=== PATIENT | female | born 2000 | race Caucasian/White ===

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

== ENCOUNTER 2020-08-05 14:41 | Outpatient (CLI) | payer MEDICAID ==
[2020-08-05 15:25] LABS: APPEARANCE,URINE SLIGHTLY-CLOUDY; BILIRUBIN,URINE NEGATIVE (NEGATIVE); COLOR,URINE YELLOW; GLUCOSE, URINE NEGATIVE (NEGATIVE); KETONES,URINE NEGATIVE (NEGATIVE); LEUKOCYTE ESTERASE,URINE LARGE (NEGATIVE); NITRITE,URINE NEGATIVE (NEGATIVE); PROTEIN,URINE 30 mg/dL (NEGATIVE); URINE SPECIFIC GRAVITY 1.015; UROBILINOGEN,URINE NEGATIVE mg/dL (<2.0)
[2020-08-05 15:42] LABS: URINE AMPHETAMINES SCREEN NEGATIVE; URINE BARBITURATES SCREEN NEGATIVE; URINE BENZODIAZEPINES SCREEN NEGATIVE; URINE COCAINE SCREEN NEGATIVE; URINE MARIJUANA (THC) SCREEN NEGATIVE; URINE METHADONE SCREEN NEGATIVE; URINE PHENCYCLIDINE SCREEN NEGATIVE
--- NOTE | 2020-08-05 15:55 | Non Stress Test Report ---
Non Stress Test Datetime Report Generated by CPN: 08/05/2020 15:55 DEMOGRAPHIC EGA NST: 36.1 INDICATION Indication for Study (NST) Other: IUP at 36.1; Not in labor VITAL SIGNS Temperature - NST: 97.7 Pulse - NST: 97 RESP - NST: 18 NBPSYS NST: 129 NBPDIA NST: 81 MONITORING Monitor Explained: Monitor Explained; Test Explained; Patient Verbalized Understanding Time on Monitor: 08/05/2020 14:55 Time off Monitor: 08/05/2020 15:34 NST Duration: 39 NST INTERVENTIONS NST Interventions: PO Hydration Physician Notified NST: Dr. Irizarry BABY A: [id number] Movement : Present Contraction Frequency : 3-7 FHR Baseline : 135 Accelerations : 15X15 Decelerations : None Variability : Moderate 6-25bpm NST Review: Meets Criteria for Reactive NST NST Review and Verified By : Gisela Mondragon RN NST Results: Reactive NST REPORT Report Trigger: Send Report
== END 2020-08-05 15:45 | disposition home or self-care (01) ==
LOC: LC 14:41
PROVIDERS: ATTEND Obstetrics & Gynecology
DX: O47.03 False labor before 37 completed weeks of gestation, third trimester (principal); Z3A.36 36 weeks gestation of pregnancy
CPT/HCPCS: 59025; 80307; 81001; 84112

== ENCOUNTER 2020-08-14 21:33 | Outpatient (CLI) | payer MEDICAID ==
[2020-08-14 22:17] LABS: APPEARANCE,URINE CLEAR; BILIRUBIN,URINE NEGATIVE (NEGATIVE); COLOR,URINE YELLOW; GLUCOSE, URINE 50 mg/dL (NEGATIVE); KETONES,URINE NEGATIVE (NEGATIVE); LEUKOCYTE ESTERASE,URINE TRACE (NEGATIVE); NITRITE,URINE NEGATIVE (NEGATIVE); PROTEIN,URINE 30 mg/dL (NEGATIVE); URINE SPECIFIC GRAVITY 1.014; UROBILINOGEN,URINE NEGATIVE mg/dL (<2.0)
[2020-08-14 22:40] LABS: URINE AMPHETAMINES SCREEN NEGATIVE; URINE BARBITURATES SCREEN NEGATIVE; URINE BENZODIAZEPINES SCREEN NEGATIVE; URINE COCAINE SCREEN NEGATIVE; URINE MARIJUANA (THC) SCREEN NEGATIVE; URINE METHADONE SCREEN NEGATIVE; URINE PHENCYCLIDINE SCREEN NEGATIVE
--- NOTE | 2020-08-14 23:00 | Non Stress Test Report ---
Non Stress Test Datetime Report Generated by CPN: 08/14/2020 23:00 DEMOGRAPHIC EGA NST: 37.3 INDICATION Indication for Study (NST) Other: lc VITAL SIGNS Temperature - NST: 98.2 Pulse - NST: 92 RESP - NST: 17 NBPSYS NST: 132 NBPDIA NST: 70 MONITORING Monitor Explained: Monitor Explained; Test Explained; Patient Verbalized Understanding Time on Monitor: 08/14/2020 21:50 Time off Monitor: 08/14/2020 22:46 NST Duration: 56 NST INTERVENTIONS NST Interventions: PO Hydration; Reposition Patient Physician Notified NST: Dr Yun BABY A: [id number] BABY A Movement : Present Contraction Frequency : rare FHR Baseline : 145 Accelerations : 15X15 Decelerations : None Variability : Moderate 6-25bpm NST Review: Meets Criteria for Reactive NST NST Review and Verified By : Arie Rodriguez RN NST Results: Reactive NST REPORT Report Trigger: Send Report
== END 2020-08-14 22:54 | disposition home or self-care (01) ==
LOC: LC 21:33
PROVIDERS: ATTEND Obstetrics & Gynecology
DX: O47.1 False labor at or after 37 completed weeks of gestation (principal); Z3A.37 37 weeks gestation of pregnancy
CPT/HCPCS: 59025; 80307; 81005; 84112

== ENCOUNTER 2020-08-17 11:25 | Outpatient (CLI) | payer MEDICAID ==
[2020-08-17 12:08] LABS: APPEARANCE,URINE CLEAR; BILIRUBIN,URINE NEGATIVE (NEGATIVE); COLOR,URINE YELLOW; GLUCOSE, URINE NEGATIVE (NEGATIVE); KETONES,URINE NEGATIVE (NEGATIVE); LEUKOCYTE ESTERASE,URINE TRACE (NEGATIVE); NITRITE,URINE NEGATIVE (NEGATIVE); PROTEIN,URINE 30 mg/dL (NEGATIVE); URINE SPECIFIC GRAVITY 1.018; UROBILINOGEN,URINE NEGATIVE mg/dL (<2.0)
[2020-08-17 12:31] LABS: URINE AMPHETAMINES SCREEN NEGATIVE; URINE BARBITURATES SCREEN NEGATIVE; URINE BENZODIAZEPINES SCREEN NEGATIVE; URINE COCAINE SCREEN NEGATIVE; URINE MARIJUANA (THC) SCREEN NEGATIVE; URINE METHADONE SCREEN NEGATIVE; URINE PHENCYCLIDINE SCREEN NEGATIVE
--- NOTE | 2020-08-17 14:46 | Non Stress Test Report ---
Non Stress Test Datetime Report Generated by CPN: 08/17/2020 14:46 DEMOGRAPHIC Test Number: 3 EGA NST: 37.6 INDICATION Indication for Study (NST) Other: labor check VITAL SIGNS Temperature - NST: 98.2 Pulse - NST: 92 RESP - NST: 16 NBPSYS NST: 121 NBPDIA NST: 69 MONITORING Monitor Explained: Monitor Explained; Test Explained; Patient Verbalized Understanding Time on Monitor: 08/17/2020 11:48 Time off Monitor: 08/17/2020 14:24 NST Duration: 156 NST INTERVENTIONS Physician Notified NST: Dr Irizarry BABY A: [id number] BABY A Movement : Present Contraction Frequency : 3-6 FHR Baseline : 150 Accelerations : 15X15 Decelerations : None Variability : Moderate 6-25bpm NST Review: Meets Criteria for Reactive NST NST Review and Verified By : Gisela Mondragon RN NST Results: Reactive NST REPORT Report Trigger: Send Report
== END 2020-08-17 14:27 | disposition home or self-care (01) ==
LOC: LC 11:25
PROVIDERS: ATTEND Obstetrics & Gynecology
DX: O26.893 Other specified pregnancy related conditions, third trimester (principal); R10.9 Unspecified abdominal pain; Z3A.37 37 weeks gestation of pregnancy
CPT/HCPCS: 59025; 80307; 81005; 84112

== ENCOUNTER 2020-08-20 00:18 | Outpatient (CLI) | payer MEDICAID ==
[2020-08-20 00:52] LABS: APPEARANCE,URINE CLEAR; BILIRUBIN,URINE NEGATIVE (NEGATIVE); COLOR,URINE YELLOW; GLUCOSE, URINE NEGATIVE (NEGATIVE); KETONES,URINE NEGATIVE (NEGATIVE); LEUKOCYTE ESTERASE,URINE NEGATIVE (NEGATIVE); NITRITE,URINE NEGATIVE (NEGATIVE); PROTEIN,URINE NEGATIVE (NEGATIVE); URINE SPECIFIC GRAVITY 1.013; UROBILINOGEN,URINE NEGATIVE mg/dL (<2.0)
[2020-08-20 01:36] LABS: URINE AMPHETAMINES SCREEN NEGATIVE; URINE BARBITURATES SCREEN NEGATIVE; URINE BENZODIAZEPINES SCREEN NEGATIVE; URINE COCAINE SCREEN NEGATIVE; URINE MARIJUANA (THC) SCREEN NEGATIVE; URINE METHADONE SCREEN NEGATIVE; URINE PHENCYCLIDINE SCREEN NEGATIVE
--- NOTE | 2020-08-20 02:33 | Non Stress Test Report ---
Non Stress Test Datetime Report Generated by CPN: 08/20/2020 02:33 DEMOGRAPHIC Test Number: 4 EGA NST: 38.2 INDICATION Indication for Study (NST) Other: LC URINE RESULTS Urine Protein, NST: Negative Urine Ketones - NST: Negative Urine Glucose - NST: Negative Urine Blood - NST: Negative MONITORING Monitor Explained: Monitor Explained; Test Explained; Patient Verbalized Understanding Time on Monitor: 08/20/2020 00:49 Time off Monitor: 08/20/2020 02:03 NST Duration: 74 NST INTERVENTIONS NST Interventions: PO Hydration Physician Notified NST: Quinones BABY A: [id number] Movement : Present Contraction Frequency : 2-5 FHR Baseline : 135 Accelerations : 15X15 Decelerations : None Variability : Moderate 6-25bpm NST Review: Meets Criteria for Reactive NST NST Review and Verified By : LAUREEN Lilly NST Results: Reactive NST REPORT Report Trigger: Send Report
== END 2020-08-20 02:13 | disposition home or self-care (01) ==
LOC: LC 00:18
PROVIDERS: ATTEND Obstetrics & Gynecology
DX: O47.1 False labor at or after 37 completed weeks of gestation (principal); Z3A.38 38 weeks gestation of pregnancy
CPT/HCPCS: 59025; 81005; 80307; 84112; Q0114

== ENCOUNTER 2020-08-23 06:01 | Inpatient (IN) | payer MEDICAID ==
[2020-08-23] MEDS ORDERED: RINGERS SOLUTION,LACTATED 1,000 ML IV ONE (06:20)
[2020-08-23] MEDS ORDERED: RINGERS SOLUTION,LACTATED 500 ML IV ONE (06:20)
[2020-08-23] MEDS ORDERED: MISOPROSTOL 0.2 MG TABLET ONE ×2 (06:21→07:41)
[2020-08-23] MEDS ORDERED: LIDOCAINE 1% INJ-PF (10 MG/ML) 30 ML SDV ONE (06:21)
[2020-08-23] MEDS ORDERED: OXYTOCIN 10 UNIT/ML VIAL ONE (06:21)
[2020-08-23] MEDS ORDERED: OXYTOCIN/0.9 % SODIUM CHLORIDE 30 UNIT/500 ML RTUINJ ONE (06:21)
[2020-08-23 06:54] LABS: APPEARANCE,URINE SLIGHTLY-CLOUDY; BILIRUBIN,URINE NEGATIVE (NEGATIVE); COLOR,URINE YELLOW; GLUCOSE, URINE NEGATIVE (NEGATIVE); KETONES,URINE NEGATIVE (NEGATIVE); LEUKOCYTE ESTERASE,URINE MODERATE (NEGATIVE); NITRITE,URINE NEGATIVE (NEGATIVE); PROTEIN,URINE 30 mg/dL (NEGATIVE); URINE SPECIFIC GRAVITY 1.014; UROBILINOGEN,URINE NEGATIVE mg/dL (<2.0)
[2020-08-23 07:10] LABS: URINE AMPHETAMINES SCREEN NEGATIVE; URINE BARBITURATES SCREEN NEGATIVE; URINE BENZODIAZEPINES SCREEN NEGATIVE; URINE COCAINE SCREEN NEGATIVE; URINE MARIJUANA (THC) SCREEN NEGATIVE; URINE METHADONE SCREEN NEGATIVE; URINE PHENCYCLIDINE SCREEN NEGATIVE
[2020-08-23 07:13] LABS: ABSOLUTE BASOPHILS # (AUTO) 0.1 10^3/uL (0.0-0.2); ABSOLUTE EOSINOPHILS # (AUTO) 0.3 10^3/uL (0.0-0.6); ABSOLUTE LYMPHOCYTES (AUTO) 2.4 10^3/uL (0.5-4.7); ABSOLUTE MONOCYTES (AUTO) 0.6 10^3/uL (0.1-1.4); BASOPHILS % (AUTO) 0.6 % (0-2); EOSINOPHILS % (AUTO) 3.1 % (0-6); HEMATOCRIT 35.1 % (36.0-47.0); HEMOGLOBIN 12.2 g/dL (12.0-15.5); LYMPHOCYTES % (AUTO) 23.5 % (13-45); MEAN CORPUSCULAR HEMOGLOBIN 34.4 pg (27.0-33.4); MEAN CORPUSCULAR HGB CONC 34.8 g/dL (32.0-36.0); MEAN CORPUSCULAR VOLUME 99 fl (80-97); MONOCYTES % (AUTO) 5.8 % (3-13); PLATELET COUNT 185 10^3/uL (150-450); RED BLOOD COUNT 3.56 10^6/uL (3.72-5.28); RED CELL DISTRIBUTION WIDTH 12.9 % (11.5-14.0); TOTAL CELLS COUNTED % (AUTO) 100 %; WHITE BLOOD COUNT 10.4 10^3/uL (4.0-10.5)
[2020-08-23 07:31] LABS: ALBUMIN 2.6 g/dL (3.5-5.0); ALKALINE PHOSPHATASE 106 U/L (38-126); ANION GAP 7 (5-19); ASPARTATE AMINO TRANSFERASE 18 U/L (14-36); BLOOD UREA NITROGEN 11 mg/dL (7-20); CARBON DIOXIDE 21 mmol/L (22-30); CHLORIDE 104 mmol/L (98-107); GLUCOSE 76 mg/dL (75-110); POTASSIUM 4.3 mmol/L (3.6-5.0)
[2020-08-23] MEDS ORDERED: METHYLERGONOVINE MALEATE INJ/PF 0.2 MG/1 ML AMPULE ONE (07:41)
[2020-08-23 07:42] LABS: BILIRUBIN,TOTAL < 0.1 mg/dL (0.2-1.3)
[2020-08-23 07:47] LABS: FREE T3 3.23 pg/mL (2.77-5.27); FREE T4 (FREE THYROXINE) 0.74 ng/dL (0.78-2.19)
[2020-08-23] MEDS ORDERED: MAGNESIUM HYDROXIDE SUSP 30 ML UDCUP PO PRN (07:50)
[2020-08-23] MEDS ORDERED: VARICELLA VACC/PF (1350 UNIT/0.5 ML) 0.5 ML VIAL SUBCUT PRN (07:50)
[2020-08-23] MEDS ORDERED: DIPH/PERTUSS(ACELL)/TETANUS VAC/PF 0.5 ML SYR (>=10YO) IM PRN (07:50)
[2020-08-23] MEDS ORDERED: BENZOCAINE/MENTHOL AEROSOL SPRAY 56 ML TOP PRN (07:50)
[2020-08-23] MEDS ORDERED: DIBUCAINE 1% OINTMENT 28 GM TP PRN (07:50)
[2020-08-23] MEDS ORDERED: OXYTOCIN/0.9 % SODIUM CHLORIDE 30 UNIT/500 ML RTUINJ IV PRN (07:50)
[2020-08-23] MEDS ORDERED: ACETAMINOPHEN 325 MG TABLET PO PRN (07:50)
[2020-08-23] MEDS ORDERED: ACETAMINOPHEN 650 MG SUPP.RECT PR PRN (07:50)
[2020-08-23] MEDS ORDERED: GLYCERIN/WITCH HAZEL LEAF 1 EACH MED..WIPE TP PRN (07:50)
[2020-08-23] MEDS ORDERED: ZOLPIDEM TARTRATE 5 MG TABLET PO PRN (07:50)
[2020-08-23] MEDS ORDERED: MAG HYDROX/AL HYDROX/SIMETH SUSP 30 ML UDCUP PO PRN (07:50)
[2020-08-23] MEDS ORDERED: FAMOTIDINE 20 MG TABLET PO PRN (07:50)
[2020-08-23] MEDS ORDERED: MEASLES,MUMPS&RUBELLA VACC/PF 0.5 ML VIAL SUBCUT PRN (07:50)
[2020-08-23] MEDS ORDERED: ACETAMINOPHEN WITH CODEINE #3 TABLET PO PRN ×2 (07:50)
[2020-08-23] MEDS ORDERED: PSEUDOEPHEDRINE HCL 30 MG TABLET PO PRN (07:50)
[2020-08-23] MEDS ORDERED: DIPHENHYDRAMINE HCL 25 MG CAPSULE PO PRN (07:50)
[2020-08-23 08:00] LABS: THYROID STIMULATING HORMONE 3.52 uIU/mL (0.47-4.68)
--- NOTE | 2020-08-23 08:00 | Admission Physical ---
Datetime Report Generated by CPN: 08/23/2020 08:00 CURRENT ADMISSION Chief Complaint: Uterine Contractions; Suspected Ruptured Membranes Indication for Induction: Not Applicable Admit Impression : Term, Intrauterine ; Active Labor Admit Plan: Admit to Unit; Initiate Labor Protocol ALLERGIES Medication Allergies: No Medication Allergies: No Known Allergies (08/20/2020) Latex: No Latex Allergies Food Allergies: none Environmental Allergies: none OBSTETRICAL HISTORY EDC: 09/01/2020 00:00 : 2 Para: 1 Term: 0 : 0 SAB: 0 IAB: 0 Ectopic: 0 Livin Cesareans: 0 VBACs: 0 Multiple Births: 0 Gestational Diabetes: No Rh Sensitization: No Incompetent Cervix: No TAMMIE: No Infertility: No ART Treatment: No Uterine Anomaly: No IUGR: No Hx Previous C/S: No Macrosomia: No Hx Loss/Stillborn: No PIH: No Hx : No Placenta Previa/Abruption: No Depression/PP Depression: No PTL/PROM: No Post Hemorrhage: Yes Current Procedures: Ultrasound; NST Obstetrical History Comments: G1: 2017 38.5 wks, 7lbs 15 oz, female- PPH (did not receive blood products) G2: Current SEE RECORDS Alcohol: No Marijuana : No Cocaine: No Other Illicit Drugs: No Cigarettes: Never Smoker. 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 Hx of elevated LFT in , PPH with first , has labial defect from G1 (wants repaired) INFECTIOUS HISTORY Gonorrhea: No Genital Herpes: No Chlamydia: No Tuberculosis: No Syphilis: No Hepatitis: No HIV/AIDS Exposure: No Rash or Viral Illness: No HPV: No PHYSICAL EXAM General: Normal HEENT: Normal Neurologic: Normal Thyroid: Deferred Heart: Normal Lungs: Normal Breast: Deferred Back: Normal Abdomen: Normal Genitourinary Exam: Normal Extremities: Normal DTRs: Normal Pelvic Type: Adequate Vital Signs: Reviewed VAGINAL EXAM Dilatation: 6 Effacement: 90 Station: -1 Contraction Comments: q 3-4 MEMBRANES Membranes: Bulging FETUS A EGA: 38.5 Monitoring: External US FHR- Baseline: 145 Variability: Moderate 6-25bpm Accelerations: 15X15 Decelerations: None FHR Category: Category I Presentation: Vertex Admit Comment: 20yo at 38+5ega presents for possible SROM and contractions. Pelvis proven to 7#15oz. H/o exercised induced asthma. Delivery note from 2018 delivery notes no laceartion but pitocin/cytotec given and c/w pph. She denies having transfusion. She has a defect (hole) in left labia minora - defect is approx 2-3cm. She has a history of thyroid mass and reportedly had a normal biopsy and then mass went away. She also has a history of elevated LFTs in . Will chk thyroid labs and lfts today. She declines epidural but is requesting that the defect is repaired. I reviewed with patient that due to size of defect would need to be repaired on separate occasion to repair properly especially since she does not have any pain medication on board. Recommended labialplasty as an outpatient. Dr. Hinojosa saw defect and agrees with recommendation. GBS negative. + SROM. Anticipate PLANS FOR LABOR AND DELIVERY Labor and Delivery: None Pain Management: Natural Feeding Preference: Breast Benefit of Breast Feed Discussed: Yes Circumcision: N/A INFORMED CONSENT Informed Consent Obtained: Vaginal Delivery; Risks, Benefits and Alternatives Discussed Signature: with User ID: [email or web address]
[2020-08-23] MEDS ORDERED: IBUPROFEN 800 MG TABLET ONE (08:29)
[2020-08-23] MEDS ORDERED: MISOPROSTOL 0.2 MG TABLET PR ONE (08:31)
--- NOTE | 2020-08-23 08:44 | Delivery Summary ---
Del Sum A-C Datetime Report Generated by CPN: 08/23/2020 08:44 DELIVERY PERSONNEL DELIVERY PERSONNEL: [id number] Delivery Doctor:: Kaela Campos MD Labor and Delivery Nurse:: Ro Rowley RN Nursery Nurse:: Dima Schroeder RN MATERNAL INFORMATION Delivery Anesthesia: None Medications After Delivery: Pitocin 30 Units in 500ml NS/D5W; Cytotec 1000mcg Per Rectum/Vagina Estimated Blood Loss (ml): 350 Delivery QBL: 350 Maternal Complications: Precipitous Labor (<3hrs) Provider Comments: VFi delivered in [place] presentation. No nuchal cord. Shoulders and body delivered without difficulty. to matenral abdomen and cord clamping delayed. Cord doubly clamped and cut. uterine atony immediately noted and Pitocin and cytotec 1000mcg MI give. FF at U after cytotec. Mother and baby stable upon provider leaving the room. no perineal lacerations LABOR SUMMARY EDC: 09/01/2020 00:00 Attempted: No Labor Anesthesia: None LABOR INFORMATION Reason for Induction: Not Applicable Onset of Labor: 08/23/2020 04:49 Complete Dilatation: 08/23/2020 07:28 Oxytocin: N/A Group B Beta Strep: negative Antibiotics # of Doses: 0 Name of Antibiotic Given: NA Steroids Given: None Reason Steroids Not Administered: Not Applicable MEMBRANES Membranes Rupture Method: Spontaneous Rupture of Membranes: 08/23/2020 06:00 Length of Rupture (hr): 1.60 Amniotic Fluid Color: Clear Amniotic Fluid Amount: Scant Amniotic Fluid Odor: Normal STAGES OF LABOR Stage 1 hr: 2 Stage 1 min: 39 Stage 2 hr: 0 Stage 2 min: 8 Stage 3 hr: 0 Stage 3 min: 3 Total Time in Labor hr: 2 Total Time in Labor min: 50 VAGINAL DELIVERY Episiotomy: None Laceration #1: None Laceration Extension #1: N/A Laceration Repair: Not Applicable Laceration Repair Note: labial defect from prior delivery noted. Sponge Count Correct: Yes Sharps Count Correct: Yes CSECTION DELIVERY Primary Indication: N/A Secondary Indication: N/A CSection Incidence: N/A Labor: N/A Elective: N/A CSection Incision: N/A BABY A INFORMATION Infant Delivery Date/Time: 08/23/2020 07:36 Method of Delivery: Vaginal Nurse Controlled Delivery: No Born in Route : No : N/A Forceps: N/A Vacuum Extraction: N/A Shoulder Dystocia : No PRESENTATION/POSITION BABY A Presentation: Cephalic Cephalic Presentation: Vertex Vertex Position: Right Occipital Anterior Breech Presentation: N/A PLACENTA INFORMATION BABY A Placenta Delivery Time : 08/23/2020 07:39 Placenta Method of Delivery: Spontaneous Placenta Status: Delivered SCORES BABY A Heart Rate 1 min: >100 bpm Resp Effort 1 min: Good Cry Reflex Irritability 1 min: Cough or Sneeze or Pulls Away Muscle Tone 1 min: Active Motion Color 1 min: Body [place], Extremities Blue Resuscitation Effort 1 min: Tactile Stimulation SCORE 1 MIN: 9 Heart Rate 5 min: >100 bpm Resp Effort 5 min: Good Cry Reflex Irritability 5 min: Cough or Sneeze or Pulls Away Muscle Tone 5 min: Active Motion Color 5 min: Body [place], Extremities Blue Resuscitation Effort 5 min: N/A SCORE 5 MIN: 9 INFORMATION BABY A Gestational Age at Delivery: 38.5 Gestational Status: Early Term- 37- 38.6 Weeks Infant Outcome : Liveborn Infant Condition : Stable Sex: Female IDENTIFICATION BABY A Verification Date/Time: 08/23/2020 08:17 ID Band Number: [id number] Mother's Name Verified: Yes Infant RN Verifying : M. Sales, RN Additional Verifying Personnel: B. Aveillant, RN WEIGHT/LENGTH BABY A Infant Birthweight (gm): 3557 Weight (lb): 7 Weight (oz): 13 Infant Length (in): 19.75 Infant Length (cm): 50.17 CORD INFORMATION BABY A No. Cord Vessels: 3 Nuchal Cord : N/A Nuchal Cord- Other: Compound right hand Cord Blood Taken: Yes-For Storage (Mom's Blood type +) Suction: None BABY B INFORMATION : N/A SIGNATURES Signature: with User ID: John
--- NOTE | 2020-08-23 08:44 | Birth Certificate Data ---
Cert Data Datetime Report Generated by CPN: 08/23/2020 08:44 CERTIFICATE DATA Delivery Provider: Kaela Campos MD (08/05/2020 14:45:Kaela Campos MD ([facility])) 47a. Care: Yes (08/05/2020 14:45:Lida Mondragon RN) 47b. Date of First Visit: 02/08/2020 00:00 (08/05/2020 14:45:Louis Rodriguez RN) 47c. Date of Last Visit: 08/17/2020 00:00 (08/05/2020 14:45:TRINIDAD Ramírez) 47d. Number of Visits: 7 (08/05/2020 14:45:TRINIDAD Ramírez) 48a. Number of Prev Live Births: 1 (08/05/2020 14:45:Louis Rodriguez RN) 48b. Now Livin (08/05/2020 14:45:Donna Villavicencio RN) 48c. Live Births Now : 0 (08/05/2020 14:45:QS system process) 48d. Date of Last Live : 04/07/2018 00:00 (08/05/2020 14:45:Louis Rodriguez RN) 48e. Losses: 0 (08/05/2020 14:45:Louis Rodriguez RN) RISK FACTORS IN THIS 49a. Diabetes: No (08/05/2020 14:45:Louis Rodriguez RN) 49b. Hypertension: No (08/05/2020 14:45:Louis Rodriguez RN) 49c. Previous Births: 0 (08/05/2020 14:45:November LAUREEN Villavicencio) 49d. Stillborns: No (08/05/2020 14:45:Louis Rodriguez RN) 49d. IUGR: No (08/05/2020 14:45:Louis Rodriguez RN) 49e. Infertility Treatment: No (08/05/2020 14:45:Louis Rodriguez RN) 49f. Previous Cesareans: 0 (08/05/2020 14:45:Louis Rodriguez RN) Mother's Height 50b. Height Inches: 63 (08/23/2020 07:21:QS system process) Mother's Weight 51a. Pre- Weight (lbs): 125 (08/05/2020 14:45:Lida Mondragon RN) 51b. Weight at Delivery (lbs): 172 (08/23/2020 07:21:QS system process) 52. Dt Last Normal Menses Began: 11/24/2019 00:00 (08/05/2020 14:45:TRINIDAD Ramírez) Infections Present/Treated 53a. Gonorrhea: No (08/05/2020 14:45:Louis Rodriguez RN) Results this Hospital Visit : Negative (08/05/2020 14:45:Lida Mondragon RN) 53b. Syphilis: No (08/05/2020 14:45:Louis Rodriguez RN) 53c. Chlamydia: No (08/05/2020 14:45:Louis Rodriguez RN) Results this Hospital Visit: Negative (08/05/2020 14:45:Lida Mondragon RN) 53d. Hepatitis B: No (08/05/2020 14:45:Louis Rodriguez RN) Results this Hospital Visit: Negative (08/05/2020 14:45:Lida Mondragon RN) 53e. Hepatitis C: Negative (08/05/2020 14:45:Lida Mondragon RN) 53h. Mother Tested for HBsAG: Yes (08/05/2020 14:45:Lida Mondragon RN) 53i. Date Tested: 02/08/2020 00:00 (08/05/2020 14:45:Lida Mondragon RN) 53j. Test Result: Negative (08/05/2020 14:45:Lida Mondragon RN) Obstetric Procedures 54a, b, c. Obstetric Procedures: Ultrasound; NST (08/05/2020 14:45:Louis Rodriguez RN) Cigarette Smoking Cigarette Smoking: Never Smoker. [id number] (08/05/2020 14:45:Louis Rodriguez RN) 55a. 3 Months Before Preg - Ci (08/05/2020 14:45:Louis Rodriguez RN) 55a. Packs: 0 (08/05/2020 14:45:Louis Rodriguez RN) 55b. 1st Trimester of Preg- Ci (08/05/2020 14:45:Louis Rodriguez RN) 55b. Packs: 0 (08/05/2020 14:45:Louis Rodriguez RN) 55c. 2nd Trimester of Preg- Ci (08/05/2020 14:45:Louis Rodriguez RN) 55c. Packs: 0 (08/05/2020 14:45:Louis Rodriguez RN) 55d. 3rd Trimester of Preg- Ci (08/05/2020 14:45:Louis Rodriguez RN) 55d. Packs: 0 (08/05/2020 14:45:Louis Rodriguez RN) Onset of Labor 56a. PROM >12 Hrs: 1.60 (08/23/2020 06:35:QS system process) 56b. Precipitous Labor <3 Hrs: 2 (08/05/2020 14:45:QS system process) 56c. Prolonged Labor > 20 Hrs: 2 (08/05/2020 14:45:QS system process) 57a. Induction of Labor: N/A (08/05/2020 14:45:Ro Rowley RN) 57c. Non-Vertex Presentation A: Vertex (08/05/2020 14:45:Ro Rowley RN) 57d. Steroids - Lung Mat: None (08/05/2020 14:45:Kaela Campos MD ([facility])) 57d. Steroids - Lung Mat: Not Applicable (08/05/2020 14:45:Kaela Campos MD ([facility])) 57f. Mat [place] or Temp >100.4: 98.9 (08/05/2020 14:45:Ro Rowley RN) 57g. Moderate/Heavy Meconium: Clear (08/23/2020 06:35:Louis Rodriguez RN) 57h. Intolerance of Labor: N/A (08/05/2020 14:45:Ro Rowley RN) : N/A (08/05/2020 14:45:Ro Rowley RN) 57i. Epidural/Spinal Anesthesia: None (08/05/2020 14:45:Ro Rowley RN) Method of Delivery 58a. Forceps - Unsuccessful A: N/A (08/05/2020 14:45:Ro Rowley RN) 58b. Vacuum - Unsuccessful A: N/A (08/05/2020 14:45:Ro Rowley, LAUREEN) 58c. Presentation at 58c. Presentation at - A : Vertex (08/05/2020 14:45:Ro Rowley RN) 58c. Presentation at - A : N/A (08/05/2020 14:45:Ro Rowley RN) 58c. Presentation at - A : Cephalic (08/17/2020 14:17:Trini Vanegas RN) Final Route and Method of Del 58d. Baby A Route/Delivery: Vaginal (08/23/2020 07:36:Ro Rowley RN) 58e. Trial of Labor Attempted: No (08/05/2020 14:45:Ro Rowley RN) 58e. Trial of Labor Attempted A: N/A (08/05/2020 14:45:Ro Rowley RN) 58e. Trial of Labor Attempted B: N/A (08/05/2020 14:45:Ro Rowley RN) Maternal Morbidity 59b. 3rd or 4th Degree Lacs: None (08/05/2020 14:45:Kaela Campos MD ([facility])) Birthweight Baby A: 3557 (08/05/2020 14:45:Ro Sales, RN) 60a. Pounds : 7 (08/05/2020 14:45:QS system process) 60b. Ounces: 13 (08/05/2020 14:45:QS system process) 61. GA at Delivery Baby A: 38.5 (08/05/2020 14:45:Ro Sales, RN) : Early Term- 37- 38.6 Weeks (08/05/2020 14:45:QS system process) 62a. 5 Minute Baby A: 9 (08/05/2020 14:45:QS system process)
[2020-08-23] MEDS ORDERED: METHYLERGONOVINE MALEATE INJ/PF 0.2 MG/1 ML AMPULE IM ONE (09:25)
[2020-08-23] MEDS ORDERED: TRANEXAMIC ACID INJ/PF 1,000 MG/10 ML SDV ONE (09:46)
[2020-08-23] MEDS ORDERED: TRANEXAMIC ACID INJ/PF 1,000 MG/10 ML SDV IV ONE (09:50)
[2020-08-23] MEDS: SENNOSIDES/DOCUSATE 8.6-50 MG 1 EACH TABLET PO SCH (10:56)
[2020-08-23] MEDS: FERROUS SULFATE 325 MG TABLET PO SCH ×2 (10:57→17:33)
[2020-08-23] MEDS: PRENATAL VITAMIN W DHA CAPSULE PO SCH (10:57)
[2020-08-23] MEDS: DOCUSATE SODIUM 100 MG CAPSULE PO SCH ×2 (10:57→17:32)
[2020-08-23] MEDS: IBUPROFEN 800 MG TABLET PO SCH ×2 (14:42→22:04)
[2020-08-24] MEDS: IBUPROFEN 800 MG TABLET PO SCH (05:20)
[2020-08-24 08:07] VITALS: BP 115/62
[2020-08-24 08:28] LABS: HEMATOCRIT 30.6 % (36.0-47.0); HEMOGLOBIN 10.6 g/dL (12.0-15.5); MEAN CORPUSCULAR HEMOGLOBIN 33.8 pg (27.0-33.4); MEAN CORPUSCULAR HGB CONC 34.5 g/dL (32.0-36.0); MEAN CORPUSCULAR VOLUME 98 fl (80-97); PLATELET COUNT 177 10^3/uL (150-450); RED BLOOD COUNT 3.13 10^6/uL (3.72-5.28); RED CELL DISTRIBUTION WIDTH 12.9 % (11.5-14.0); WHITE BLOOD COUNT 11.2 10^3/uL (4.0-10.5)
[2020-08-24] MEDS: DOCUSATE SODIUM 100 MG CAPSULE PO SCH (09:49)
[2020-08-24] MEDS: SENNOSIDES/DOCUSATE 8.6-50 MG 1 EACH TABLET PO SCH (09:49)
[2020-08-24] MEDS: FERROUS SULFATE 325 MG TABLET PO SCH (09:50)
[2020-08-24] MEDS: PRENATAL VITAMIN W DHA CAPSULE PO SCH (09:50)
--- NOTE | 2020-08-24 11:17 | PDOC DISCHARGE SUMMARY ---
Impression - Admit/DC Date/PCP Admission Date/Primary Care Provider: 08/23/20 06:30 ISABELLA LAM MD Discharge Date: 08/24/20 - Discharge Diagnosis (1) (spontaneous vaginal delivery) Is this a current diagnosis for this admission?: Yes (2) Active labor at term Is this a current diagnosis for this admission?: Yes (3) History of hemorrhage Is this a current diagnosis for this admission?: Yes - Additional Information Resuscitation Status: Full Code Discharge Diet: Regular Discharge Activity: Balance Activity w/Rest, Pelvic Rest Referrals: ISABELLA LAM MD [Primary Care Provider] - Prescriptions: Ibuprofen [Motrin 800 mg Tablet] 800 mg PO Q8 #60 tablet Home Medications: Xsi390/Iron Fum/Folic/Docusate [ 19 Tablet] 1 tab PO DAILY 08/23/20 Ibuprofen [Motrin 800 mg Tablet] 800 mg PO Q8 #60 tablet 08/24/20 HPI Gestational Age: 38.5 Reason(s) for Admission: Onset of Labor Procedures: NST Intrapartum Procedure(s): Spontaneous Vaginal Delivery Hospital Course 59. Maternal Morbidity (serious complications experinced by the mother associated with labor and delivery: None of the above Results Laboratory Results: WBC 11.2 10^3/uL (4.0-10.5) H 08/24/20 07:37 RBC 3.13 10^6/uL (3.72-5.28) L 08/24/20 07:37 Hgb 10.6 g/dL (12.0-15.5) L 08/24/20 07:37 Hct 30.6 % (36.0-47.0) L 08/24/20 07:37 MCV 98 fl (80-97) H 08/24/20 07:37 MCH 33.8 pg (27.0-33.4) H 08/24/20 07:37 MCHC 34.5 g/dL (32.0-36.0) 08/24/20 07:37 RDW 12.9 % (11.5-14.0) 08/24/20 07:37 Plt Count 177 10^3/uL (150-450) 08/24/20 07:37 Lymph % (Auto) 23.5 % (13-45) 08/23/20 06:53 Cataño % (Auto) 5.8 % (3-13) 08/23/20 06:53 Eos % (Auto) 3.1 % (0-6) 08/23/20 06:53 Baso % (Auto) 0.6 % (0-2) 08/23/20 06:53 Absolute Neuts (auto) 7.0 10^3/uL (1.7-8.2) 08/23/20 06:53 Absolute Lymphs (auto) 2.4 10^3/uL (0.5-4.7) 08/23/20 06:53 Absolute Monos (auto) 0.6 10^3/uL (0.1-1.4) 08/23/20 06:53 Absolute Eos (auto) 0.3 10^3/uL (0.0-0.6) 08/23/20 06:53 Absolute Basos (auto) 0.1 10^3/uL (0.0-0.2) 08/23/20 06:53 Seg Neutrophils % 67.0 % (42-78) 08/23/20 06:53 Sodium 131.9 mmol/L (137-145) L 08/23/20 06:53 Potassium 4.3 mmol/L (3.6-5.0) 08/23/20 06:53 Chloride 104 mmol/L (98-107) 08/23/20 06:53 Carbon Dioxide 21 mmol/L (22-30) L 08/23/20 06:53 Anion Gap 7 (5-19) 08/23/20 06:53 BUN 11 mg/dL (7-20) 08/23/20 06:53 Creatinine 0.42 mg/dL (0.52-1.25) L 08/23/20 06:53 Est GFR ( Amer) > 60 (>60) 08/23/20 06:53 Est GFR (MDRD) Non-Af > 60 (>60) 08/23/20 06:53 Glucose 76 mg/dL (75-110) 08/23/20 06:53 Calcium 9.0 mg/dL (8.4-10.2) 08/23/20 06:53 Total Bilirubin < 0.1 mg/dL (0.2-1.3) L 08/23/20 06:53 Direct Bilirubin mg/dL (0.0-0.4) 08/23/20 06:53 Neonat Total Bilirubin Not Reportable 08/23/20 06:53 Neonat Direct Bilirubin Not Reportable 08/23/20 06:53 Neonat Indirect Bili Not Reportable 08/23/20 06:53 AST 18 U/L (14-36) 08/23/20 06:53 ALT 10 U/L (<35) 08/23/20 06:53 Alkaline Phosphatase 106 U/L (38-126) 08/23/20 06:53 Total Protein 5.0 g/dL (6.3-8.2) L 08/23/20 06:53 Albumin 2.6 g/dL (3.5-5.0) L 08/23/20 06:53 TSH 3.52 uIU/mL (0.47-4.68) 08/23/20 06:53 Free T4 0.74 ng/dL (0.78-2.19) L 08/23/20 06:53 Free T3 pg/mL 3.23 pg/mL (2.77-5.27) 08/23/20 06:53 Urine Color YELLOW 08/23/20 06:10 Urine Appearance SLIGHTLY-CLOUDY 08/23/20 06:10 Urine pH 6.0 (5.0-9.0) 08/23/20 06:10 Ur Specific Fisher 1.014 08/23/20 06:10 Urine Protein 30 mg/dL (NEGATIVE) H 08/23/20 06:10 Urine Glucose (UA) NEGATIVE mg/dL (NEGATIVE) 08/23/20 06:10 Urine Ketones NEGATIVE mg/dL (NEGATIVE) 08/23/20 06:10 Urine Blood LARGE (NEGATIVE) H 08/23/20 06:10 Urine Nitrite NEGATIVE (NEGATIVE) 08/23/20 06:10 Urine Bilirubin NEGATIVE (NEGATIVE) 08/23/20 06:10 Urine Urobilinogen NEGATIVE mg/dL (<2.0) 08/23/20 06:10 Ur Leukocyte Esterase MODERATE (NEGATIVE) H 08/23/20 06:10 Urine Ascorbic Acid NEGATIVE (NEGATIVE) 08/23/20 06:10 Membranes Rupture POSITIVE (NEGATIVE) H 08/23/20 06:10 Urine Opiates Screen NEGATIVE 08/23/20 06:10 Urine Methadone Screen NEGATIVE 08/23/20 06:10 Ur Barbiturates Screen NEGATIVE 08/23/20 06:10 Ur Phencyclidine Scrn NEGATIVE 08/23/20 06:10 Ur Amphetamines Screen NEGATIVE 08/23/20 06:10 U Benzodiazepines Scrn NEGATIVE 08/23/20 06:10 Urine Cocaine Screen NEGATIVE 08/23/20 06:10 U Marijuana (THC) Screen NEGATIVE 08/23/20 06:10 RPR NONREACTIVE (NONREACTIVE) 08/23/20 06:53 Blood Type A POSITIVE 08/23/20 06:53 Antibody Screen NEGATIVE 08/23/20 06:53 Crossmatch See Detail 08/23/20 06:53 Plan Plan of Treatment: f/u at [facility] 4wks Time Spent: Less than 30 Minutes
--- NOTE | 2020-08-24 11:18 | PDOC PROGRESS REPORT ---
Subjective-OB Progress Note for:: 08/24/20 Subjective: Pt doing well, no concerns. She reports light bleeding, reg diet and is voiding w/o difficulty. She would like to go home today. Physical Exam (OB) Vital Signs: Temp Pulse Resp BP Pulse Ox 97.7 F 74 16 115/62 95 08/24/20 10:00 08/24/20 07:42 08/24/20 07:42 08/24/20 07:42 08/24/20 07:42 Intake & Output 08/23/20 08/24/20 08/25/20 06:59 06:59 06:59 Intake Total 1500 380 Balance 1500 380 Weight 77.7 kg - PIH/Pre-Eclampsia DTR's: 1 + Clonus: Negative Headache: Absent Epigastric Pain: No Visual Changes: No - Maternal Morbidity 59. Maternal Morbidity (serious complications experinced by the mother associated with labor and delivery: None of the above - Lochia Lochia Amount: Small 10-25 ml Lochia Color: Serosa/Brown - Abdomen Description: Soft, Round Hernia Present: No Fundal Description: Firm, Midline Fundal Height: u/u - u/2 Objective-Diagnostic Laboratory: 08/24/20 07:37 08/23/20 06:53 08/24/20 07:37 WBC 11.2 H RBC 3.13 L Hgb 10.6 L Hct 30.6 L MCV 98 H MCH 33.8 H MCHC 34.5 RDW 12.9 Plt Count 177 Assessment and Plan(PN) - Assessment and Plan (1) (spontaneous vaginal delivery) Is this a current diagnosis for this admission?: Yes (2) Active labor at term Is this a current diagnosis for this admission?: Yes (3) History of hemorrhage Is this a current diagnosis for this admission?: Yes - Time Spent with Patient Time with patient: Less than 15 minutes Medications reviewed and adjusted accordingly: Yes - Disposition Anticipated Discharge Disposition: Home, Self Care Anticipated Discharge Timeframe: within 24 hours
== END 2020-08-24 13:14 | disposition home or self-care (01) | DRG 807 ==
LOC: LC 06:01 → LR 06:30 → 2S 10:36
PROVIDERS: ADMIT Student in an Organized Health Care Education/Training Program; ATTEND Student in an Organized Health Care Education/Training Program
PROC: 10E0XZZ Delivery of Products of Conception, External Approach (ICD-10-PCS; principal; 2020-08-23)
DX: O99.52 Diseases of the respiratory system complicating childbirth (principal); Z37.0 Single live birth; J45.909 Unspecified asthma, uncomplicated; O32.6XX0 Maternal care for compound presentation, not applicable or unspecified; Z79.51 Long term (current) use of inhaled steroids; O62.3 Precipitate labor; Z3A.38 38 weeks gestation of pregnancy; Z87.59 Personal history of other complications of pregnancy, childbirth and the puerperium
CPT/HCPCS: 36415; 80053; 80307; 81005; 84112; 84439; 84443; 84481; 85025; 85027; 86592; 86850; 86900; 86901; 86920; J2210; J2590; J3490

== ENCOUNTER → 2020-09-02 | Outpatient (CLI) | payer MEDICAID ==
[2020-09-02 14:37] LABS: ABSOLUTE BASOPHILS # (AUTO) 0.1 10^3/uL (0.0-0.2); ABSOLUTE LYMPHOCYTES (AUTO) 2.2 10^3/uL (0.5-4.7); ABSOLUTE MONOCYTES (AUTO) 0.5 10^3/uL (0.1-1.4); ABSOLUTE NEUT (AUTO) 9.8 10^3/uL (1.7-8.2); BASOPHILS % (AUTO) 0.6 % (0-2); EOSINOPHILS % (AUTO) 7.5 % (0-6); HEMATOCRIT 37.1 % (36.0-47.0); HEMOGLOBIN 12.7 g/dL (12.0-15.5); LYMPHOCYTES % (AUTO) 16.1 % (13-45); MEAN CORPUSCULAR HEMOGLOBIN 33.2 pg (27.0-33.4); MEAN CORPUSCULAR HGB CONC 34.1 g/dL (32.0-36.0); MEAN CORPUSCULAR VOLUME 97 fl (80-97); MONOCYTES % (AUTO) 3.4 % (3-13); PLATELET COUNT 416 10^3/uL (150-450); RED BLOOD COUNT 3.82 10^6/uL (3.72-5.28); SEGMENTED NEUTROPHILS % (AUTO) 72.4 % (42-78); TOTAL CELLS COUNTED % (AUTO) 100 %; WHITE BLOOD COUNT 13.5 10^3/uL (4.0-10.5)
[2020-09-02 15:02] LABS: C-REACTIVE PROTEIN 6.2 mg/L (<10.0)
[2020-09-02 15:16] LABS: ERYTHROCYTE SEDIMENTATION RATE 34 mm/hr (0-20)
== END ==
LOC: OD 13:56
PROVIDERS: ATTEND Nurse Practitioner Acute Care
DX: R22.31 Localized swelling, mass and lump, right upper limb (principal)
CPT/HCPCS: 36415; 85025; 85652; 86140; 86431